=== PATIENT | female | born 1990 | race Caucasian/White ===

== ENCOUNTER 2016-04-15 13:09 | Emergency (ER) | payer BC ==
[2016-04-15 15:49] VITALS: BP 158/96
== END 2016-04-15 16:32 | disposition left against medical advice (07) ==
LOC: ED 13:09
DX: R10.9 Unspecified abdominal pain (principal); Z53.21 Procedure and treatment not carried out due to patient leaving prior to being seen by health care provider
CPT/HCPCS: 99281

== ENCOUNTER 2021-05-10 05:53 | Inpatient (IN) ==
[2021-05-10] MEDS ORDERED: Metoclopramide 5 MG/ML VIAL (10 mg) IV SLOW PU ONE (06:00)
[2021-05-10] MEDS ORDERED: Buffered Lidocaine 1% SYRIN 1 ml INTRADERM ONE (06:00)
[2021-05-10] MEDS ORDERED: Lactated Ringers 1000 ml BAG 1,000 ML IV SCH (06:00)
[2021-05-10] MEDS ORDERED: Heparin 5000 UNITS/ML 1 mL VIAL ONE (06:21)
[2021-05-10] MEDS ORDERED: ceFAZolin 1 GM ADVAN 1 GM ADDV.VIAL IVPB ONE (06:21)
[2021-05-10] MEDS ORDERED: Metoclopramide 5 MG/ML VIAL (10 mg) ONE (06:21)
[2021-05-10] MEDS ORDERED: Bupivacaine 0.25% EPI 200,000 30 ML SDV ONE (06:49)
[2021-05-10] MEDS ORDERED: Methylene Blue 0.5 % 50 MG/10 ML AMP IV ONE (06:49)
[2021-05-10] MEDS ORDERED: Propofol 10 MG/ML 20 ML BTL ONE (07:02)
[2021-05-10] MEDS ORDERED: Rocuronium 50 mg VIAL 10 mg/ml 5 ml VIAL (50 mg) ONE ×3 (07:02→11:16)
[2021-05-10] MEDS ORDERED: Midazolam 2 mg/2 ml VIAL 1 mg/ml 2 ml VIAL (2 mg) ONE (07:02)
[2021-05-10] MEDS ORDERED: fentaNYL 100 mcg/2 ml 50 MCG/ML VIAL ONE ×2 (07:02→12:43)
[2021-05-10] MEDS ORDERED: Lidocaine 2% PF 5 ML VIAL ONE (07:02)
[2021-05-10] MEDS ORDERED: HYDROmorphone 0.5 MG/0.5 ML SYRINGE ONE (11:02)
[2021-05-10] MEDS ORDERED: Ondansetron ODT 4 mg TAB 4 MG TAB PO PRN (11:21)
[2021-05-10] MEDS ORDERED: Prochlorperazine 5 mg/ml 2 ml VIAL (10 mg) IV PRN (11:21)
[2021-05-10] MEDS ORDERED: Acetaminophen IV 1 GM/100ML 100 ML IV ONE ×2 (11:21→12:39)
[2021-05-10] MEDS ORDERED: Dexamethasone IV 4 MG/ML VIAL 1 ml VIAL ONE (11:26)
[2021-05-10] MEDS ORDERED: Ondansetron 4 mg VIAL 2 MG/ML 2 ml VIAL ONE (11:26)
[2021-05-10] MEDS ORDERED: Bupivacaine 0.25% SDV 30 ML ONE (11:34)
[2021-05-10] MEDS ORDERED: Metoprolol Tartrate 5 mg VIAL 5 ml VIAL (1 mg/ml) ONE (12:22)
[2021-05-10] MEDS ORDERED: Ondansetron 4 mg VIAL 2 MG/ML 2 ml VIAL IV PRN (14:30)
[2021-05-10] MEDS ORDERED: HYDROcodone/ACET. 7.5/325 LIQ 15 ML UDC PO PRN (14:30)
[2021-05-10] MEDS ORDERED: HYDROmorphone 0.5 MG/0.5 ML SYRINGE IV SLOW PU PRN (14:30)
[2021-05-10] MEDS ORDERED: HYDROmorphone 1 MG/1 ML SYRINGE ONE (14:40)
[2021-05-10] MEDS: HYDROmorphone 1 MG/1 ML SYRINGE IV PRN ×2 (14:42→15:00)
[2021-05-10] MEDS ORDERED: Prochlorperazine 5 mg/ml 2 ml VIAL (10 mg) ONE (16:10)
[2021-05-10] MEDS: Lactated Ringers 1000 ml BAG 1,000 ML IV SCH (17:24)
[2021-05-10] MEDS: Heparin 5000 UNITS/ML 1 mL VIAL SUBCUT SCH (21:47)
[2021-05-11] MEDS: Lactated Ringers 1000 ml BAG 1,000 ML IV SCH ×2 (02:01→09:44)
[2021-05-11] MEDS: Heparin 5000 UNITS/ML 1 mL VIAL SUBCUT SCH ×2 (05:52→14:32)
[2021-05-11] MEDS ORDERED: Flu vaccine *QUAD* 2021-22* 0.5 ML SYRINGE IM ONE (09:00)
[2021-05-11] MEDS ORDERED: D5W 1/2 NS KCl 20 meq 1000 ml 1,000 ML IV SCH (15:00)
[2021-05-11 16:07] VITALS: BP 155/87
[2021-05-13] MEDS ORDERED: Scopolamine PATCH Remove NOTE PATCH OFF ONE (06:00)
== END 2021-05-11 16:35 | disposition home or self-care (01) | DRG 403 ==
LOC: AA 05:53 → SSU 17:11
PROVIDERS: ADMIT Surgery; ATTEND Surgery